=== PATIENT | female | born 1940 | race Caucasian/White ===

== ENCOUNTER 2017-06-03 05:47 | Day surgery (SDC) | payer MEDICARE, OTHER ==
[~2017-06-03] VITALS: Ht 152.4 cm; Wt 43.5 kg
--- NOTE | ~2017-06-03 | OP ---
PATIENT NAME: MATTIE ROBIN MEDICAL RECORD: [id number] :40 LOCATION:D.OPS ADMISSION DATE: SURGEON: LIZZETTE MARC MD DATE OF OPERATION: 06/03/2017 PREOPERATIVE DIAGNOSES: History of complex polyp involving the ileocecal valve. POSTOPERATIVE DIAGNOSES: History of complex polyp involving the ileocecal valve with some regrowth of the polyp on the superior lip of the ileocecal valve. PROCEDURES: 1. Total colonoscopy to cecum. 2. Polypectomy with cold endoscopic biopsies of the ileocecal valve polyp and then ablation utilizing the argon plasma grinding machine tender, which is a radiofrequency type of ablation of a benign colonic process. SURGEON: Lizzette Marc M.D. ROD FILLER: None. BLOOD LOSS: Minimal. ANESTHESIA: General. COMPLICATIONS: None. The risks, possible complications and alternatives to procedure were explained to the patient. She elects to proceed. OPERATIVE COURSE: The patient was conveyed to the operating room electively on 06/03/2017. General anesthesia was induced by the anesthesia staff. The patient was placed in the Hernandez position. A digital rectal examination was performed. A colonoscope was inserted through the anus. It was easily advanced to the cecum. I identified the polyp, which was most easily seen with narrow band imaging. I performed cold endoscopic biopsies of the polyp. I then ablated the base of the polyp with the argon plasma grinding machine tender utilizing the right colon setting in the forced mode. Once the polyp was thoroughly ablated, I slowly withdrew the endoscope. The pullback was greater than 10-minute pullback. I dragged the folds. The prep was adequate. The endoscope was then withdrawn under direct vision. I will see the patient back in my office in 2-3 weeks. It is very likely that I will turn the patient's endoscopic needs for surveillance colonoscopies back over to Dr. Montalvo or Dr. Teran. My recommendation would be that the patient undergo another colonoscopy in a year. TRANSINT:[id number] Voice Confirmation ID: [id number] DOCUMENT ID: [id number] OPERATIVE REPORT [id number] MATTIE ROBIN LIZZETTE MARC MD CC: YOLANDA TERAN MD, LINDA MONTALVO MD and LEILA REDDY [id number] DICTATION DATE: 06/03/17920 BROWNING PROCESSOR: 06/03/17944 [facility] [address] [place] [address]
--- NOTE | ~2017-06-03 | HP ---
PATIENT: MATTIE ROBIN MEDICAL RECORD: [id number] ACCOUNT: [id number] LOCATION:DPrernaREMI : 40 ADMISSION DATE: 06/03/17 HISTORY AND PHYSICAL EXAMINATION The patient has a complex ileocecal valve polyp. The complexity is due to the size and location of the polyp. The patient underwent a total colonoscopy to cecum, hot biopsy forceps, polypectomy times 1 and then argon plasma coagulation therapy to the ileocecal valve polyp. The ileocecal valve polyp was easily identifiable and was best seen with narrow band imaging. There is a written history and physical on the chart. The risks, possible complications and alternatives to procedure were explained to the patient. She elects to proceed. TRANSINT:[id number] Voice Confirmation ID: [id number] DOCUMENT ID: [id number] LIZZETTE MARC MD CC: YOLANDA GLOVER MD, LINDA JIANG MD and LEILA REDDY [id number] DICTATION DATE: 06/03/17917 [employer] INSTRUMENT REPAIRER: 06/03/17 0934 [facility] [place] [id number] [place] [id number]
[~2017-06-03 05:47] MED LIST: CALCIUM PO; FOLIC ACID1 MG PO; LISINOPRIL10 MG PO; METHOTREXATE2.5 MG PO; PLAQUENIL200 MG PO; PREDNISONE5 MG PO; PRILOSEC20 MG PO; TREXALL5 MG; VITAMIN D31000 UNI2 PO
[2017-06-03 06:18] VITALS: BP 149/81; Ht 152.4 cm; Wt 43.5 kg
[2017-06-03 07:00] LABS: HEMATOCRIT 42.9 % (36.0-48.0); MCH 30.7 pg (26.0-34.0); MCHC 32.6 g/dL (31.0-37.0); MCV 94.1 fL (80.0-100.0); MEAN PLATELET VOLUME 9.6 fL (7.4-10.4); RBC 4.56 10x6/uL (4.00-5.40); RDW 15.1 % (11.5-14.5); WBC 5.3 10x3/uL (4.8-10.8)
[2017-06-03 07:08] LABS: CALC OSMOLALITY 277 mosm/kg (275-300); CALCIUM 8.9 mg/dL (8.5-10.1); CHLORIDE - SERUM 104 mmol/L (98-107); CREATININE - SERUM 0.7 mg/dL (0.6-1.3); GLUCOSE 89 mg/dL (74-106); POTASSIUM - SERUM 3.8 mmol/L (3.5-5.1); SODIUM 141 mmol/L (136-145); UREA NITROGEN 8 mg/dL (7-18); eGFR NON AFRICAN AMERICAN 86 mL/min (90-120)
== END 2017-06-03 10:50 | disposition home or self-care (01) ==
LOC: D.OPS 05:47 → D.PAN 09:15 → D.OPS 09:15
PROVIDERS: Anesthesiology
DX: D12.0 Benign neoplasm of cecum (principal); F17.200 Nicotine dependence, unspecified, uncomplicated; J44.9 Chronic obstructive pulmonary disease, unspecified; K21.9 Gastro-esophageal reflux disease without esophagitis; Z01.812 Encounter for preprocedural laboratory examination